=== PATIENT | male | born 1985 | race Caucasian/White ===

== ENCOUNTER 2019-06-10 13:24 | Emergency (ER) | payer OTHER ==
[~2019-06-10] VITALS: Ht 193 cm; Wt 149.7 kg
[2019-06-10 13:53] VITALS: BP_SYST 131
--- NOTE | 2019-06-10 14:34 | NUR ---
Placed in hallway chair 1.
--- NOTE | 2019-06-10 14:35 | NUR ---
KRISTEN Casas at bedside examining patient.
--- NOTE | 2019-06-10 14:40 | NUR ---
Pt c/o laceration to L hand.
[2019-06-10] MEDS ORDERED: BACITRACIN 1 GM OINT TP ONE (15:00)
[2019-06-10] MEDS ORDERED: LIDOCAINE 2%, 20 ML MDV INJ ONE (15:45)
--- NOTE | 2019-06-10 16:20 | NUR ---
pt receiving wound repair tolerating well.
[2019-06-10 16:34] VITALS: BP_SYST 131
--- NOTE | 2019-06-10 16:34 | NUR ---
Patient given written and verbal discharge instructions and verbalizes understanding. ER MD discussed with patient the results and treatment provided. Patient in stable condition. ID arm band removed. Rx of bactericin,motrin given. Patient educated on pain management and to follow up with PMD. Pain Scale 2. Opportunity for questions provided and answered. Medication side effect fact sheet provided.
== END 2019-06-10 16:34 | disposition home or self-care (01) ==
LOC: SED 13:24
DX: S61.211A Laceration without foreign body of left index finger without damage to nail, initial encounter (principal); S61.213A Laceration without foreign body of left middle finger without damage to nail, initial encounter; R03.0 Elevated blood-pressure reading, without diagnosis of hypertension; Z89.022 Acquired absence of left finger(s); W20.8XXA Other cause of strike by thrown, projected or falling object, initial encounter; Y93.89 Activity, other specified; Y92.89 Other specified places as the place of occurrence of the external cause; Y99.8 Other external cause status
CPT/HCPCS: 12001; 73130; 99283; J2001